=== PATIENT | male | born 1975 | race Caucasian/White ===

== ENCOUNTER 2023-12-28 09:52 | Outpatient (CLI) | payer OTHER, SELFPAY | END 2023-12-28 09:53 | disposition home or self-care (01) | LOC: ANHBWCAUD 09:54 | PROVIDERS: PCP Nurse Practitioner Family; Visit Provider Nurse Practitioner Family | DX: H91.91 Unspecified hearing loss, right ear (principal) | CPT/HCPCS: 99199 ==

== ENCOUNTER 2024-01-17 09:01 | Outpatient (CLI) | payer OTHER, SELFPAY | END 2024-01-17 09:02 | disposition home or self-care (01) | PROVIDERS: PCP Nurse Practitioner Family; Visit Provider Nurse Practitioner Family | DX: H91.91 Unspecified hearing loss, right ear (principal) | CPT/HCPCS: 99199 ==